=== PATIENT | male | born 2000 | race African-American/Black ===

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

== ENCOUNTER 2024-08-04 10:17 | Emergency (ER) | payer OTHER, MEDICAID ==
[~2024-08-04] VITALS: Ht 172.7 cm; Wt 84.0 kg
[2024-08-04 10:34] VITALS: O2SAT 99
[2024-08-04] MEDS ORDERED: LIDOCAINE HCL/PF 1% 10 MG/ML 5ML VIAL INFIL ONE (12:45)
[2024-08-04] MEDS: IBUPROFEN 600MG TABLET PO ONE (13:00)
[2024-08-04] MEDS: BACITRACIN ZINC OINT UDPKT TOP ONE (13:09)
[2024-08-04 13:45] VITALS: BP 122/70; PULSE 78; RESP 18; TEMP 36.78072; O2SAT 99
[2024-08-04] MEDS: TETANUS, DIPHTHERIA, PERTUSSIS VAC/PF 0.5ML (>10YR OLD) IM ONE (13:48)
[2024-08-04] MEDS: IBUPROFEN 100MG/5ML UDC PO NR (13:48)
== END 2024-08-04 14:31 | disposition home or self-care (01) ==
LOC: ER 10:17
DX: S01.411A Laceration without foreign body of right cheek and temporomandibular area, initial encounter (principal); Y04.0XXA Assault by unarmed brawl or fight, initial encounter; Y93.89 Activity, other specified; Y92.89 Other specified places as the place of occurrence of the external cause; Y99.8 Other external cause status
CPT/HCPCS: 90715; 12013; 90471; 99283; J2003; Z7610 ×2

== ENCOUNTER 2024-08-09 08:58 | Emergency (ER) | payer OTHER ==
[~2024-08-09] VITALS: Ht 172.7 cm; Wt 84.0 kg
[2024-08-09 09:04] VITALS: O2SAT 100
[2024-08-09 09:13] VITALS: BP 117/61; PULSE 58; RESP 14; TEMP 97.7; O2SAT 99
== END 2024-08-09 10:01 | disposition home or self-care (01) ==
LOC: ER 08:58
DX: S01.411D Laceration without foreign body of right cheek and temporomandibular area, subsequent encounter (principal); X58.XXXD Exposure to other specified factors, subsequent encounter
CPT/HCPCS: 99281; Z7610